=== PATIENT | female | born 1945 | race Caucasian/White ===

== ENCOUNTER → 2018-11-03 | Outpatient (CLI) | payer OTHER ==
[~2018-11-03] MED LIST: HYDROCHLOROTH12.5 M1 PO; LEVOXYL75 MCG PO; LIPITOR10 MG PO; MOBIC15 MG PO
--- NOTE | 2018-11-03 17:04 | EKG ---
[place] [address] [facility] [place] [address] ELECTROCARDIOGRAM REPORT Name: BRENDAN KINNEY Room #: REG [facility]#: [id number] ������������������ Admission: 11/03/18 ������������������ Attend Phys: Daljit Aroryo MD Discharge: ������������������ Date of : 49 Report #: [id number] ����������������������������������������������������������������� [id number] THIS REPORT FOR: //name// [facility] Test Date: 2018-11-03 Test Time: 14:14:29 Pat Name: BRENDAN KINNEY Department: Room: Gender: F Digital Account Coordinator: raz : 1945 Requested By: Daljit Arroyo Order Number: [id number] MD: Tony Higgins Measurements Intervals [place] Rate: 64 P: 19 [place]: 188 QRS: -10 QRSD: 113 T: 29 QT: 432 QTc: 446 Interpretive Statements Sinus rhythm RSR' in V1 or V2, right VCD Left ventricular hypertrophy Compared to ECG 04/03/1994 23:08:00 Left ventricular hypertrophy now present T-wave abnormality no longer present Electronically Signed On 11-03-2018 17:03:50 CDT by Tony Higgins [email or web address] ��������������������������������������������� <ELECTRONICALLY SIGNED> ���������������������������������������� By: Tony Higgins MD, [facility] ��������������������������������������������� 11/03/18 1703 1414 1414 Tony Higgins MD, [facility] /EPI
== END | disposition home or self-care (01) ==
LOC: LITH 12:48
DX: N20.0 Calculus of kidney (principal); I10 Essential (primary) hypertension; M10.9 Gout, unspecified; E07.9 Disorder of thyroid, unspecified; K50.90 Crohn's disease, unspecified, without complications; Z79.899 Other long term (current) drug therapy; Z98.890 Other specified postprocedural states

== ENCOUNTER → 2018-12-08 | Outpatient (CLI) | payer OTHER | END | disposition home or self-care (01) | LOC: LITH 12:07 | DX: N20.1 Calculus of ureter (principal); I10 Essential (primary) hypertension; E78.00 Pure hypercholesterolemia, unspecified; Z98.890 Other specified postprocedural states; Z79.899 Other long term (current) drug therapy ==